=== PATIENT | male | born 1935 | race Caucasian/White ===

== ENCOUNTER 2021-06-23 18:22 | Inpatient (IN) | payer MEDICARE, BC ==
[~2021-06-23] VITALS: Ht 175.3 cm; Wt 90.7 kg
[2021-06-23] MEDS ORDERED: LEVO75TA7 PO (18:44)
[2021-06-23] MEDS ORDERED: POTA10CA43 PO (18:44)
[2021-06-23] MEDS ORDERED: ATOR40TA PO (18:44)
[2021-06-23] MEDS ORDERED: ASCO500C18 PO (18:44)
[2021-06-23] MEDS ORDERED: OMEP20CA15 PO (18:44)
[2021-06-23] MEDS ORDERED: OMEG-110 PO (18:44)
[2021-06-23] MEDS ORDERED: MULT-978 PO (18:44)
[2021-06-23] MEDS ORDERED: FERR325T6 PO (18:44)
[2021-06-23] MEDS ORDERED: CLON0.1T PO (18:47)
[2021-06-23] MEDS ORDERED: ACET-2154 PO (18:47)
[2021-06-23 19:06] VITALS: BP 136/82
[2021-06-23] MEDS ORDERED: CLONIDINE HCL 0.1 MG TABLET PO PRN (19:30)
[2021-06-23] MEDS ORDERED: ACETAMINOPHEN 325 MG TABLET-SA PATIENTS-PAIN ONLY PO PRN (19:30)
[2021-06-23 20:06] VITALS: BP 140/69
[2021-06-23] MEDS: REMEDY ESSENTIAL ZINC PASTE 113 GM TOP SCH (20:51)
[2021-06-23] MEDS: POTASSIUM CHLORIDE 20 MEQ TAB.PRT.SR PO SCH (20:51)
[2021-06-23] MEDS: ATORVASTATIN 40 MG TABLET PO SCH (20:51)
[2021-06-24] MEDS: ACETAMINOPHEN 325 MG TABLET PO PRN (03:47)
[2021-06-24 04:09] VITALS: BP 153/66
[2021-06-24] MEDS: PANTOPRAZOLE SODIUM 40 MG TABLET.DR PO SCH (06:33)
[2021-06-24] MEDS: LEVOTHYROXINE SODIUM 75 MCG TABLET PO SCH (06:33)
[2021-06-24 08:20] LABS: HEMATOCRIT 37.9 % (36.7-47.1); MEAN CORPUSCULAR HEMOGLOBIN 30.4 uug (23.8-33.4); MEAN CORPUSCULAR VOLUME 86.9 fL (73.0-96.2); PLATELET COUNT (AUTO) 184 K/uL (152-348)
[2021-06-24 08:23] LABS: CREATININE 0.9 mg/dL (0.6-1.3); POTASSIUM 4.1 mmol/L (3.5-5.1)
[2021-06-24 08:28] VITALS: BP 108/63
[2021-06-24] MEDS: OMEGA-3 FATTY ACIDS/FISH OIL CAPSULE PO SCH (08:40)
[2021-06-24] MEDS: REMEDY ESSENTIAL ZINC PASTE 113 GM TOP SCH ×2 (08:40→20:31)
[2021-06-24] MEDS: POTASSIUM CHLORIDE 20 MEQ TAB.PRT.SR PO SCH ×2 (08:40→17:02)
[2021-06-24] MEDS: MULTIVIT, IRON, MIN NO. 8, FA TABLET PO SCH (08:40)
[2021-06-24] MEDS: ASCORBIC ACID 500 MG TABLET PO SCH (08:40)
[2021-06-24] MEDS ORDERED: Medication Not On Formulary EA (Omega-3 Fatty Acids/Fish Oil (Fish Oil 1,200 Mg Softgel) PO SCH (09:00)
[2021-06-24] MEDS ORDERED: POTASSIUM CHLORIDE 10 MEQ TAB.PRT.SR PO SCH (09:00)
[2021-06-24] MEDS ORDERED: Medication Not On Formulary EA (Omeprazole 20 MG) PO SCH (09:00)
[2021-06-24] MEDS ORDERED: Medication Not On Formulary EA (Ascorbic Acid (Vitamin C) 500 MG) PO SCH (09:00)
[2021-06-24] MEDS ORDERED: Medication Not On Formulary EA (Ferrous Sulfate 325 MG) PO SCH (09:00)
[2021-06-24 17:16] VITALS: BP 113/58
[2021-06-24 20:00] VITALS: BP 110/60
[2021-06-24] MEDS: ATORVASTATIN 40 MG TABLET PO SCH (20:31)
[2021-06-25 04:34] VITALS: BP 108/56
[2021-06-25] MEDS: LEVOTHYROXINE SODIUM 75 MCG TABLET PO SCH (06:11)
[2021-06-25] MEDS: PANTOPRAZOLE SODIUM 40 MG TABLET.DR PO SCH (06:11)
[2021-06-25 08:04] VITALS: BP 103/58
[2021-06-25] MEDS: MULTIVIT, IRON, MIN NO. 8, FA TABLET PO SCH (08:18)
[2021-06-25] MEDS: ASCORBIC ACID 500 MG TABLET PO SCH (08:19)
[2021-06-25] MEDS: OMEGA-3 FATTY ACIDS/FISH OIL CAPSULE PO SCH (08:19)
[2021-06-25] MEDS: POTASSIUM CHLORIDE 20 MEQ TAB.PRT.SR PO SCH ×2 (08:19→16:07)
[2021-06-25] MEDS: REMEDY ESSENTIAL ZINC PASTE 113 GM TOP SCH ×2 (08:20→20:51)
[2021-06-25 15:21] VITALS: BP 120/57
[2021-06-25 20:12] VITALS: BP 101/59
[2021-06-25] MEDS: ATORVASTATIN 40 MG TABLET PO SCH (20:51)
[2021-06-26 05:12] VITALS: BP 129/69
[2021-06-26] MEDS: PANTOPRAZOLE SODIUM 40 MG TABLET.DR PO SCH (05:42)
[2021-06-26] MEDS: LEVOTHYROXINE SODIUM 75 MCG TABLET PO SCH (05:42)
[2021-06-26 08:13] VITALS: BP 137/68
[2021-06-26] MEDS: OMEGA-3 FATTY ACIDS/FISH OIL CAPSULE PO SCH (09:53)
[2021-06-26] MEDS: MULTIVIT, IRON, MIN NO. 8, FA TABLET PO SCH (09:53)
[2021-06-26] MEDS: ASCORBIC ACID 500 MG TABLET PO SCH (09:54)
[2021-06-26] MEDS: REMEDY ESSENTIAL ZINC PASTE 113 GM TOP SCH ×2 (09:54→21:04)
[2021-06-26] MEDS: POTASSIUM CHLORIDE 20 MEQ TAB.PRT.SR PO SCH ×2 (09:55→17:04)
[2021-06-26 15:11] VITALS: BP 108/64
[2021-06-26 20:55] VITALS: BP 120/60
[2021-06-26] MEDS: ATORVASTATIN 40 MG TABLET PO SCH (21:03)
[2021-06-27 04:38] VITALS: BP 96/47
[2021-06-27] MEDS: LEVOTHYROXINE SODIUM 75 MCG TABLET PO SCH (05:56)
[2021-06-27] MEDS: PANTOPRAZOLE SODIUM 40 MG TABLET.DR PO SCH (05:57)
[2021-06-27 07:32] VITALS: BP 108/63
[2021-06-27] MEDS: ASCORBIC ACID 500 MG TABLET PO SCH (09:51)
[2021-06-27] MEDS: OMEGA-3 FATTY ACIDS/FISH OIL CAPSULE PO SCH (09:51)
[2021-06-27] MEDS: POTASSIUM CHLORIDE 20 MEQ TAB.PRT.SR PO SCH ×2 (09:52→16:57)
[2021-06-27] MEDS: MULTIVIT, IRON, MIN NO. 8, FA TABLET PO SCH (09:52)
[2021-06-27] MEDS: REMEDY ESSENTIAL ZINC PASTE 113 GM TOP SCH ×2 (09:52→20:24)
[2021-06-27 15:41] VITALS: BP 100/50
[2021-06-27] MEDS: ATORVASTATIN 40 MG TABLET PO SCH (20:24)
[2021-06-27 20:33] VITALS: BP 99/61
[2021-06-28] MEDS: ACETAMINOPHEN 325 MG TABLET PO PRN (03:51)
[2021-06-28 04:11] VITALS: BP 107/60
[2021-06-28] MEDS: PANTOPRAZOLE SODIUM 40 MG TABLET.DR PO SCH (06:17)
[2021-06-28] MEDS: LEVOTHYROXINE SODIUM 75 MCG TABLET PO SCH (06:17)
[2021-06-28 08:00] VITALS: BP 128/55
[2021-06-28] MEDS: POTASSIUM CHLORIDE 20 MEQ TAB.PRT.SR PO SCH ×2 (09:07→16:40)
[2021-06-28] MEDS: ASCORBIC ACID 500 MG TABLET PO SCH (09:07)
[2021-06-28] MEDS: MULTIVIT, IRON, MIN NO. 8, FA TABLET PO SCH (09:07)
[2021-06-28] MEDS: OMEGA-3 FATTY ACIDS/FISH OIL CAPSULE PO SCH (09:07)
[2021-06-28] MEDS: REMEDY ESSENTIAL ZINC PASTE 113 GM TOP SCH ×2 (09:08→19:55)
[2021-06-28 16:00] VITALS: BP 118/62
[2021-06-28] MEDS: ATORVASTATIN 40 MG TABLET PO SCH (19:52)
[2021-06-28 20:43] VITALS: BP 102/59
[2021-06-29 04:29] VITALS: BP 110/64
[2021-06-29] MEDS: LEVOTHYROXINE SODIUM 75 MCG TABLET PO SCH (06:08)
[2021-06-29] MEDS: PANTOPRAZOLE SODIUM 40 MG TABLET.DR PO SCH (06:09)
[2021-06-29 08:06] VITALS: BP 110/69
[2021-06-29] MEDS: ASCORBIC ACID 500 MG TABLET PO SCH (08:30)
[2021-06-29] MEDS: POTASSIUM CHLORIDE 20 MEQ TAB.PRT.SR PO SCH ×2 (08:30→16:03)
[2021-06-29] MEDS: MULTIVIT, IRON, MIN NO. 8, FA TABLET PO SCH (08:30)
[2021-06-29] MEDS: OMEGA-3 FATTY ACIDS/FISH OIL CAPSULE PO SCH (08:31)
[2021-06-29] MEDS: REMEDY ESSENTIAL ZINC PASTE 113 GM TOP SCH ×2 (08:31→20:06)
[2021-06-29] MEDS: METHYL SALICYLATE/MENTHOL CREAM 28 GM TUBE TOP PRN (15:44)
[2021-06-29 15:58] VITALS: BP 103/59
[2021-06-29 20:00] VITALS: BP 110/54
[2021-06-29] MEDS: ATORVASTATIN 40 MG TABLET PO SCH (20:06)
[2021-06-30 04:00] VITALS: BP 113/65
[2021-06-30] MEDS: LEVOTHYROXINE SODIUM 75 MCG TABLET PO SCH (06:04)
[2021-06-30] MEDS: PANTOPRAZOLE SODIUM 40 MG TABLET.DR PO SCH (06:04)
[2021-06-30 08:00] VITALS: BP 109/58
[2021-06-30] MEDS: OMEGA-3 FATTY ACIDS/FISH OIL CAPSULE PO SCH (08:29)
[2021-06-30] MEDS: POTASSIUM CHLORIDE 20 MEQ TAB.PRT.SR PO SCH ×2 (08:29→16:45)
[2021-06-30] MEDS: MULTIVIT, IRON, MIN NO. 8, FA TABLET PO SCH (08:29)
[2021-06-30] MEDS: ASCORBIC ACID 500 MG TABLET PO SCH (08:29)
[2021-06-30] MEDS: REMEDY ESSENTIAL ZINC PASTE 113 GM TOP SCH ×2 (08:30→20:47)
[2021-06-30 16:00] VITALS: BP 105/51
[2021-06-30 20:00] VITALS: BP 118/69
[2021-06-30] MEDS: ATORVASTATIN 40 MG TABLET PO SCH (20:47)
[2021-06-30] MEDS: ACETAMINOPHEN 325 MG TABLET PO PRN (22:22)
[2021-06-30] MEDS: METHYL SALICYLATE/MENTHOL CREAM 28 GM TUBE TOP PRN (22:23)
[2021-07-01 04:00] VITALS: BP 114/66
[2021-07-01] MEDS: LEVOTHYROXINE SODIUM 75 MCG TABLET PO SCH (06:28)
[2021-07-01] MEDS: PANTOPRAZOLE SODIUM 40 MG TABLET.DR PO SCH (06:28)
[2021-07-01 08:00] VITALS: BP 124/69
[2021-07-01] MEDS: OMEGA-3 FATTY ACIDS/FISH OIL CAPSULE PO SCH (08:58)
[2021-07-01] MEDS: ASCORBIC ACID 500 MG TABLET PO SCH (08:58)
[2021-07-01] MEDS: MULTIVIT, IRON, MIN NO. 8, FA TABLET PO SCH (08:58)
[2021-07-01] MEDS: POTASSIUM CHLORIDE 20 MEQ TAB.PRT.SR PO SCH ×2 (08:58→16:36)
[2021-07-01] MEDS: REMEDY ESSENTIAL ZINC PASTE 113 GM TOP SCH ×2 (08:59→20:33)
[2021-07-01 16:44] VITALS: BP 123/48
[2021-07-01 20:24] VITALS: BP 94/53
[2021-07-01] MEDS: ATORVASTATIN 40 MG TABLET PO SCH (20:32)
[2021-07-01] MEDS: ZOLPIDEM 5 MG TABLET PO PRN (20:36)
[2021-07-02 04:22] VITALS: BP 110/65
[2021-07-02] MEDS: PANTOPRAZOLE SODIUM 40 MG TABLET.DR PO SCH (05:54)
[2021-07-02] MEDS: LEVOTHYROXINE SODIUM 75 MCG TABLET PO SCH (05:54)
[2021-07-02 07:33] VITALS: BP 122/64
[2021-07-02] MEDS: OMEGA-3 FATTY ACIDS/FISH OIL CAPSULE PO SCH (08:16)
[2021-07-02] MEDS: MULTIVIT, IRON, MIN NO. 8, FA TABLET PO SCH (08:16)
[2021-07-02] MEDS: POTASSIUM CHLORIDE 20 MEQ TAB.PRT.SR PO SCH ×2 (08:16→18:34)
[2021-07-02] MEDS: ASCORBIC ACID 500 MG TABLET PO SCH (08:16)
[2021-07-02] MEDS: REMEDY ESSENTIAL ZINC PASTE 113 GM TOP SCH ×2 (08:17→20:37)
[2021-07-02] MEDS: GUAIFENESIN SUGAR FREE 100 MG/5 ML UDC PO PRN (08:17)
[2021-07-02 15:39] VITALS: BP 125/74
[2021-07-02 20:00] VITALS: BP 108/54
[2021-07-02] MEDS: ATORVASTATIN 40 MG TABLET PO SCH (20:26)
[2021-07-02] MEDS: ZOLPIDEM 5 MG TABLET PO PRN (20:34)
[2021-07-03 04:00] VITALS: BP 107/58
[2021-07-03] MEDS: PANTOPRAZOLE SODIUM 40 MG TABLET.DR PO SCH (06:19)
[2021-07-03] MEDS: LEVOTHYROXINE SODIUM 75 MCG TABLET PO SCH (06:19)
[2021-07-03 07:51] VITALS: BP 116/68
[2021-07-03] MEDS: ASCORBIC ACID 500 MG TABLET PO SCH (08:04)
[2021-07-03] MEDS: POTASSIUM CHLORIDE 20 MEQ TAB.PRT.SR PO SCH ×2 (08:04→16:28)
[2021-07-03] MEDS: MULTIVIT, IRON, MIN NO. 8, FA TABLET PO SCH (08:04)
[2021-07-03] MEDS: OMEGA-3 FATTY ACIDS/FISH OIL CAPSULE PO SCH (08:04)
[2021-07-03] MEDS: REMEDY ESSENTIAL ZINC PASTE 113 GM TOP SCH ×2 (08:05→21:02)
[2021-07-03] MEDS: GUAIFENESIN SUGAR FREE 100 MG/5 ML UDC PO PRN (08:16)
[2021-07-03] MEDS ORDERED: methylPREDNISolone ACETATE 40 MG VIAL IM ONE (11:45)
[2021-07-03] MEDS ORDERED: LIDOCAINE HCL 1% 20 ML VIAL IJ PRN (13:00)
[2021-07-03] MEDS ORDERED: TRIAMCINOLONE ACETONIDE 40 MG/1 ML VIAL IM ONE (14:00)
[2021-07-03 14:49] VITALS: BP 101/58
[2021-07-03 20:00] VITALS: BP 99/58
[2021-07-03] MEDS: ATORVASTATIN 40 MG TABLET PO SCH (20:50)
[2021-07-03] MEDS: ZOLPIDEM 5 MG TABLET PO PRN (20:56)
[2021-07-04 04:00] VITALS: BP 116/67
[2021-07-04] MEDS: LEVOTHYROXINE SODIUM 75 MCG TABLET PO SCH (06:13)
[2021-07-04] MEDS: PANTOPRAZOLE SODIUM 40 MG TABLET.DR PO SCH (06:13)
[2021-07-04 07:42] VITALS: BP 110/79
[2021-07-04] MEDS: OMEGA-3 FATTY ACIDS/FISH OIL CAPSULE PO SCH (08:47)
[2021-07-04] MEDS: ASCORBIC ACID 500 MG TABLET PO SCH (08:47)
[2021-07-04] MEDS: MULTIVIT, IRON, MIN NO. 8, FA TABLET PO SCH (08:47)
[2021-07-04] MEDS: POTASSIUM CHLORIDE 20 MEQ TAB.PRT.SR PO SCH ×2 (08:47→17:22)
[2021-07-04] MEDS: REMEDY ESSENTIAL ZINC PASTE 113 GM TOP SCH ×2 (08:48→20:39)
[2021-07-04 15:07] VITALS: BP 104/58
[2021-07-04 20:38] VITALS: BP 100/54
[2021-07-04] MEDS: ATORVASTATIN 40 MG TABLET PO SCH (20:38)
[2021-07-05] MEDS: ACETAMINOPHEN 325 MG TABLET PO PRN (00:49)
[2021-07-05] MEDS: ZOLPIDEM 5 MG TABLET PO PRN (00:54)
[2021-07-05 04:22] VITALS: BP 136/70
[2021-07-05] MEDS: LEVOTHYROXINE SODIUM 75 MCG TABLET PO SCH (06:06)
[2021-07-05] MEDS: PANTOPRAZOLE SODIUM 40 MG TABLET.DR PO SCH (06:06)
[2021-07-05] MEDS: MULTIVIT, IRON, MIN NO. 8, FA TABLET PO SCH (08:52)
[2021-07-05] MEDS: OMEGA-3 FATTY ACIDS/FISH OIL CAPSULE PO SCH (08:52)
[2021-07-05] MEDS: POTASSIUM CHLORIDE 20 MEQ TAB.PRT.SR PO SCH ×2 (08:52→17:09)
[2021-07-05] MEDS: ASCORBIC ACID 500 MG TABLET PO SCH (08:52)
[2021-07-05] MEDS: REMEDY ESSENTIAL ZINC PASTE 113 GM TOP SCH ×2 (08:53→20:42)
[2021-07-05 09:04] VITALS: BP 141/66
[2021-07-05 16:15] VITALS: BP 112/60
[2021-07-05 20:31] VITALS: BP 112/54
[2021-07-05] MEDS: ATORVASTATIN 40 MG TABLET PO SCH (20:42)
[2021-07-06] MEDS: ZOLPIDEM 5 MG TABLET PO PRN ×2 (00:11→20:46)
[2021-07-06 04:00] VITALS: BP 109/62
[2021-07-06] MEDS: LEVOTHYROXINE SODIUM 75 MCG TABLET PO SCH (05:44)
[2021-07-06] MEDS: PANTOPRAZOLE SODIUM 40 MG TABLET.DR PO SCH (05:44)
[2021-07-06 07:55] VITALS: BP 131/80
[2021-07-06] MEDS: MULTIVIT, IRON, MIN NO. 8, FA TABLET PO SCH (10:38)
[2021-07-06] MEDS: OMEGA-3 FATTY ACIDS/FISH OIL CAPSULE PO SCH (10:38)
[2021-07-06] MEDS: ASCORBIC ACID 500 MG TABLET PO SCH (10:38)
[2021-07-06] MEDS: POTASSIUM CHLORIDE 20 MEQ TAB.PRT.SR PO SCH ×2 (10:38→17:34)
[2021-07-06] MEDS: REMEDY ESSENTIAL ZINC PASTE 113 GM TOP SCH ×2 (14:49→20:43)
[2021-07-06 16:11] VITALS: BP 134/74
[2021-07-06 20:00] VITALS: BP 91/55
[2021-07-06] MEDS: ATORVASTATIN 40 MG TABLET PO SCH (20:43)
[2021-07-07 04:00] VITALS: BP 118/73
[2021-07-07] MEDS: LEVOTHYROXINE SODIUM 75 MCG TABLET PO SCH (05:34)
[2021-07-07] MEDS: PANTOPRAZOLE SODIUM 40 MG TABLET.DR PO SCH (05:34)
[2021-07-07] MEDS: ASCORBIC ACID 500 MG TABLET PO SCH (09:18)
[2021-07-07] MEDS: OMEGA-3 FATTY ACIDS/FISH OIL CAPSULE PO SCH (09:18)
[2021-07-07] MEDS: MULTIVIT, IRON, MIN NO. 8, FA TABLET PO SCH (09:19)
[2021-07-07] MEDS: REMEDY ESSENTIAL ZINC PASTE 113 GM TOP SCH ×2 (09:19→21:15)
[2021-07-07] MEDS: POTASSIUM CHLORIDE 20 MEQ TAB.PRT.SR PO SCH ×2 (09:19→17:08)
[2021-07-07 16:26] VITALS: BP 100/58
[2021-07-07 20:00] VITALS: BP 102/63
[2021-07-07] MEDS: ATORVASTATIN 40 MG TABLET PO SCH (21:14)
[2021-07-07] MEDS: ZOLPIDEM 5 MG TABLET PO PRN (21:15)
[2021-07-08 04:00] VITALS: BP 122/84
[2021-07-08] MEDS: PANTOPRAZOLE SODIUM 40 MG TABLET.DR PO SCH (05:43)
[2021-07-08] MEDS: LEVOTHYROXINE SODIUM 75 MCG TABLET PO SCH (05:43)
[2021-07-08 08:00] VITALS: BP 116/72
[2021-07-08] MEDS: POTASSIUM CHLORIDE 20 MEQ TAB.PRT.SR PO SCH (09:37)
[2021-07-08] MEDS: OMEGA-3 FATTY ACIDS/FISH OIL CAPSULE PO SCH (09:37)
[2021-07-08] MEDS: ASCORBIC ACID 500 MG TABLET PO SCH (09:37)
[2021-07-08] MEDS: MULTIVIT, IRON, MIN NO. 8, FA TABLET PO SCH (09:37)
[2021-07-08] MEDS: REMEDY ESSENTIAL ZINC PASTE 113 GM TOP SCH (09:38)
== END 2021-07-08 15:30 | DRG 948 ==
PROVIDERS: ADMIT Physical Medicine & Rehabilitation Pain Medicine; ATTEND Physical Medicine & Rehabilitation Pain Medicine
PROC: 05HB33Z Insertion of Infusion Device into Right Basilic Vein, Percutaneous Approach (ICD-10-PCS; principal; 2021-07-06)
PROC: 0HBRXZZ Excision of Toe Nail, External Approach (ICD-10-PCS; 2021-07-08)
DX: R53.1 Weakness (principal); M62.82 Rhabdomyolysis; A04.5 Campylobacter enteritis; N17.9 Acute kidney failure, unspecified; E03.9 Hypothyroidism, unspecified; E78.5 Hyperlipidemia, unspecified; I10 Essential (primary) hypertension; B35.1 Tinea unguium; I25.10 Atherosclerotic heart disease of native coronary artery without angina pectoris; M17.12 Unilateral primary osteoarthritis, left knee; R53.81 Other malaise; E86.0 Dehydration; L60.0 Ingrowing nail; Z96.651 Presence of right artificial knee joint; Z53.20 Procedure and treatment not carried out because of patient's decision for unspecified reasons; Z88.6 Allergy status to analgesic agent; Z20.822 Contact with and (suspected) exposure to COVID-19
CPT/HCPCS: 36415; 85025; 97161; 97535-GO-CO; A4663; J3301; J3490